=== PATIENT | male | born 1955 | race Caucasian/White ===

== ENCOUNTER 2017-10-13 18:17 | Inpatient (IN) ==
[2017-10-13] MEDS ORDERED: Iohexol 300 MG/ML 100 ML Vial (for Rad CT) IVCONTRAST ONE (18:18)
[2017-10-13] MEDS ORDERED: ceFAZolin 2 GM Premix Inj 2 GM/50 ML PIGGYBACK IV.SIG ONE (18:28)
[2017-10-13] MEDS ORDERED: Sod Chloride 0.9% Inj 1,000 ML IV.CONT SCH (18:30)
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
[2017-10-13 19:25] LABS: Baso # (Auto) 0.1 th/mm3 (0.0-0.2); Eos # (Auto) 0.1 th/mm3 (0.0-0.4); Eos % (Auto) 0.5 % (0.0-4.0); Hematocrit 46.2 % (39.0-51.0); Hemoglobin 15.4 gm/dL (13.0-17.0); Lymph # (Auto) 1.5 th/mm3 (1.0-4.8); Lymph % (Auto) 13.2 % (9.0-44.0); Mean Corpuscular HGB Conc 33.3 % (32.0-36.0); Mean Corpuscular Hemoglobin 31.6 pg (27.0-34.0); Mean Corpuscular Volume 94.8 fL (80.0-100.0); Mean Platelet Volume 10.1 fL (7.0-11.0); Mono % (Auto) 8.8 % (0.0-8.0); Neut # (Auto) 8.4 th/mm3 (1.8-7.7); Neut % (Auto) 76.5 % (16.0-70.0); Platelet Count 214 th/mm3 (150-450); Red Blood Count 4.88 mil/mm3 (4.50-5.90); Red Cell Distribution Width 13.4 % (11.6-17.2)
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
[2017-10-13 19:42] LABS: Activated Partial Thrombo Time 18.4 sec (24.3-30.1); INR 0.9 Ratio; Prothrombin Time 9.6 sec (9.8-11.6)
[2017-10-13] MEDS ORDERED: Morphine Inj 4 MG/ML Vial IV.PUSH ONE (19:50)
[2017-10-13 20:13] LABS: Alcohol 47 mg/dL (0-5); Anion Gap 15 meq/L (5-15); Blood Urea Nitrogen 19 mg/dL (7-18); Calcium 9.1 mg/dL (8.5-10.1); Carbon Dioxide 18.9 meq/L (21.0-32.0); Chloride 107 meq/L (98-107); Glomerular Filtration Rate 47 mL/min (>89); Glucose,Random 150 mg/dL (74-106); Potassium 4.2 meq/L (3.5-5.1); Sodium 141 meq/L (136-145)
[2017-10-13] MEDS ORDERED: Acetaminophen 325 MG Tablet PO PRN (22:31)
[2017-10-13] MEDS ORDERED: Bisacodyl 10 MG Supp RECTAL PRN (22:31)
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
[2017-10-14] MEDS: Sod Chloride 0.9% Inj 1,000 ML IV.CONT SCH ×2 (00:28→11:56)
[2017-10-14] MEDS: levETIRAcetam 1000mg/100mL Inj 100 ML IV.SIG SCH ×2 (02:40→13:35)
[2017-10-14] MEDS: Chlorhexidine Gluconate 2% 1 Pack (2 Cloths) TOPICAL SCH (04:00)
[2017-10-14] MEDS ORDERED: Chlorhexidine Gluconate 2% 1 Pack (2 Cloths) TOPICAL PRN (04:00)
[2017-10-14] MEDS: Morphine Inj 4 MG/ML Vial IV.PUSH PRN (06:15)
[2017-10-14 06:29] LABS: Baso % (Auto) 0.3 % (0.0-2.0); Hemoglobin 14.3 gm/dL (13.0-17.0); Lymph # (Auto) 1.2 th/mm3 (1.0-4.8); Lymph % (Auto) 12.1 % (9.0-44.0); Mean Corpuscular Hemoglobin 32.1 pg (27.0-34.0); Mean Corpuscular Volume 94.5 fL (80.0-100.0); Mean Platelet Volume 9.9 fL (7.0-11.0); Mono # (Auto) 1.1 th/mm3 (0.0-0.9); Mono % (Auto) 11.1 % (0.0-8.0); Neut # (Auto) 7.8 th/mm3 (1.8-7.7); Neut % (Auto) 76.5 % (16.0-70.0); Platelet Count 194 th/mm3 (150-450); Red Blood Count 4.44 mil/mm3 (4.50-5.90); Red Cell Distribution Width 13.2 % (11.6-17.2); White Blood Count 10.1 th/mm3 (4.0-11.0)
[2017-10-14 06:47] LABS: Activated Partial Thrombo Time 23.7 sec (24.3-30.1); Prothrombin Time 9.7 sec (9.8-11.6)
[2017-10-14 06:58] LABS: Albumin 3.3 g/dL (3.4-5.0); Anion Gap 12 meq/L (5-15); Aspartate Aminotransferase 26 U/L (15-37); Blood Urea Nitrogen 19 mg/dL (7-18); Calcium 8.9 mg/dL (8.5-10.1); Carbon Dioxide 21.6 meq/L (21.0-32.0); Chloride 108 meq/L (98-107); Glomerular Filtration Rate 84 mL/min (>89); Glucose,Random 127 mg/dL (74-106); Magnesium 2.2 mg/dL (1.5-2.5); Potassium 3.9 meq/L (3.5-5.1); Sodium 142 meq/L (136-145)
[2017-10-14 07:00] LABS: Alanine Aminotransferase 34 U/L (12-78); Phosphorus 3.5 mg/dL (2.5-4.9)
[2017-10-14 07:02] LABS: Alkaline Phosphatase 80 U/L (45-117); Total Protein 6.7 g/dL (6.4-8.2)
[2017-10-14] MEDS ORDERED: Famotidine PF Inj 20 MG/2 ML Vial IV.PUSH SCH (09:00)
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
[2017-10-14] MEDS: Lisinopril 10 MG Tablet PO SCH (09:53)
[2017-10-14] MEDS: Senna/Docusate Sodium 8.6/50 MG Tablet PO SCH ×2 (09:53→20:46)
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
[2017-10-14] MEDS ORDERED: Acetaminophen 325 MG Tablet PO PRN (10:06)
--- NOTE | 2017-10-14 10:26 | XR ---
EXAM DATE: 10/14/2017 10:11 AM EDT AGE/SEX: 62 years / Male INDICATIONS: Left shoulder pain. [facility] CLINICAL DATA: This is the patient's initial encounter. Patient reports that signs and symptoms have been present for 2 days and indicates a pain score of 10/10. MEDICAL/SURGICAL HISTORY: None. None. COMPARISON: [facility], XR CHEST PA AND LAT, 03/24/2016. . FINDINGS: Today's examination there is a small teardrop shaped piece of cortical bone just superior to the AC j oint. The findings suggest most likely an old avulsion injury. However, I would recommend correlation with point tenderness. There is good alignment at the AC joint. The rest of the bony structures invo lving the shoulder joint are grossly intact. No joint dislocation is seen. CONCLUSION: Probable old avulsion fracture involving the distal clavicle. Recommend correlation with point tender ness. Otherwise, unremarkable exam for patient's age. Electronically signed by: Alpesh Benavides MD 10/14/2017 10:25 AM EDT
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
[2017-10-14] MEDS: Folic Acid 1 MG Tablet PO SCH (11:57)
--- NOTE | 2017-10-14 17:57 | ECG ---
Date Performed: 10/13/2017 Time Performed: 22:08:57 PTAGE: 62 years EKG: Sinus rhythm WITH SINUS ARRHYTHMIA NORMAL ECG NO PREVIOUS TRACING DOCTOR: Yoanna Tipton Interpretating Date/Time 10/14/2017 17:55:13
[2017-10-15] MEDS: levETIRAcetam 1000mg/100mL Inj 100 ML IV.SIG SCH ×2 (02:02→14:45)
[2017-10-15] MEDS: Chlorhexidine Gluconate 2% 1 Pack (2 Cloths) TOPICAL SCH (04:21)
[2017-10-15 04:24] LABS: Baso % (Auto) 0.5 % (0.0-2.0); Eos # (Auto) 0.1 th/mm3 (0.0-0.4); Eos % (Auto) 1.1 % (0.0-4.0); Hemoglobin 13.9 gm/dL (13.0-17.0); Lymph # (Auto) 1.7 th/mm3 (1.0-4.8); Lymph % (Auto) 19.2 % (9.0-44.0); Mean Corpuscular Volume 94.1 fL (80.0-100.0); Mono # (Auto) 1.2 th/mm3 (0.0-0.9); Mono % (Auto) 12.7 % (0.0-8.0); Neut % (Auto) 66.5 % (16.0-70.0); Platelet Count 175 th/mm3 (150-450); Red Blood Count 4.35 mil/mm3 (4.50-5.90); Red Cell Distribution Width 13.7 % (11.6-17.2); White Blood Count 9.1 th/mm3 (4.0-11.0)
[2017-10-15 04:54] LABS: Albumin 3.1 g/dL (3.4-5.0); Anion Gap 11 meq/L (5-15); Aspartate Aminotransferase 21 U/L (15-37); Blood Urea Nitrogen 15 mg/dL (7-18); Calcium 8.4 mg/dL (8.5-10.1); Carbon Dioxide 23.1 meq/L (21.0-32.0); Chloride 106 meq/L (98-107); Glomerular Filtration Rate Greater Than 89 mL/min (>89); Glucose,Random 111 mg/dL (74-106); Magnesium 1.9 mg/dL (1.5-2.5); Potassium 3.9 meq/L (3.5-5.1); Sodium 140 meq/L (136-145)
[2017-10-15 04:59] LABS: Alanine Aminotransferase 28 U/L (12-78); Alkaline Phosphatase 68 U/L (45-117); Phosphorus 2.8 mg/dL (2.5-4.9); Total Protein 6.6 g/dL (6.4-8.2)
--- NOTE | 2017-10-15 05:34 | CT ---
EXAM DATE: 10/15/2017 5:03 AM EDT AGE/SEX: 62 years / Male INDICATIONS: Cephalgia. Follow up subarachnoid bleed. CLINICAL DATA: This is the patient's subsequent encounter. Patient reports that signs and symptoms h ave been present for 2 days and indicates a pain score of 6/10. MEDICAL/SURGICAL HISTORY: Hypertension. None. RADIATION DOSE: 56.35 CTDI (mGy) COMPARISON: [facility] [place], CT HEAD W/O CONTRAST, 10/13/2017. . TECHNIQUE: CT of the head without contrast. Using automated exposure control and adjustment of the mA and/or kV according to patient size, radiation dose was kept as low as reasonably achievable to ob tain optimal diagnostic quality images. DICOM format image data is available electronically for revi ew and comparison. FINDINGS: Previously seen right temporoparietal subarachnoid blood not clearly seen today but there is increase d size and conspicuity of a currently 3.4 cm low-attenuation area of the right temporal lobe of gina rn for focal cerebral edema/infarct. A tiny petechial hemorrhage is now seen of the left high parieta l convexity, series 2 image 25. I believe a small amount of subdural blood is in between the leaves o f the tentorium, especially on the right. No mass effect or midline shift. Blood is seen in the sphenoid air cells and would be of concern for a nondisplaced/occult skull base fracture. CONCLUSION: 1. Apparent evolving focal subcortical cerebral edema and/or infarction of the right temporal lobe. 2. No perceptible persistent subarachnoid hemorrhage but a small amount of subdural blood in between the leaves of the tentorium and a tiny left high parietal parenchymal hemorrhage are now evident. 3. Possible occult skull base fracture. Blood is seen in the sphenoid air cells. Electronically signed by: Nitesh Hernández MD 10/15/2017 5:33 AM EDT
[2017-10-15] MEDS: Lisinopril 10 MG Tablet PO SCH (08:01)
[2017-10-15] MEDS: Folic Acid 1 MG Tablet PO SCH (08:01)
[2017-10-15] MEDS: Senna/Docusate Sodium 8.6/50 MG Tablet PO SCH ×2 (08:02→20:07)
--- NOTE | 2017-10-15 11:30 | P.PNNS ---
Subjective Interval history: Patient reports doing well. Complains of some difficulty with left shoulder. Also has mild headache Physical Exam Vital signs: Vital Signs 10/14/17 12:00 10/14/17 14:00 10/14/17 16:00 Temperature 98.4 F 98.3 F Pulse Rate 84 86 80 Respiratory Rate 14 17 Blood Pressure 131/76 113/72 Pulse Oximetry 95 95 10/14/17 18:00 10/14/17 20:00 10/14/17 22:00 Temperature 98.5 F Pulse Rate 78 92 H 90 Respiratory Rate 15 Blood Pressure 112/62 Pulse Oximetry 95 95 10/15/17 00:00 10/15/17 02:00 10/15/17 04:00 Temperature 98.1 F 98.7 F Pulse Rate 86 80 84 Respiratory Rate 14 13 Blood Pressure 105/66 126/79 Pulse Oximetry 94 L 94 L 10/15/17 06:00 10/15/17 08:00 10/15/17 10:00 Temperature 98 F Pulse Rate 88 80 88 Respiratory Rate 16 Blood Pressure 128/75 Pulse Oximetry 93 L 94 L 10/15/17 10:13 Temperature Pulse Rate Respiratory Rate Blood Pressure Pulse Oximetry 92 L Intake & Output 10/14/17 10/15/17 10/15/17 18:59 06:59 18:59 Intake Total 1720 / 1720 585 / 585 Output Total 1100 / 1100 650 / 650 Balance 620 / 620 -65 / -65 Weight 129.6 kg Intake: IV 1000 / 1000 105 / 105 NS Inj 1,000 ML @ 84 mls/hr IV. 900 / 900 CONT .[id number] ALEXANDER Rx#:[id number] Keppra 1000 mg/100 mL Premix 100 / 100 105 / 105 100 ML @ 400 mls/hr IV.SIG Q12H ALEXANDER Rx#:[id number] Oral 720 / 720 480 / 480 Output: Urine 1100 / 1100 650 / 650 Other: # Bowel Movements 0 Narrative: Is alert and awake. Oriented 3. Follows commands. Difficulty with range of motion left shoulder CT scan of brain reviewed. Evolution of contusion of temporal lobe. Very small amount of subarachnoid hemorrhage Assessment and Plan - Assessment (1) Subarachnoid bleed Code(s): I60.9 - Nontraumatic subarachnoid hemorrhage, unspecified Status: Acute (2) Cerebral contusion Code(s): S06.339A - Contusion and laceration of cerebrum, unspecified, with loss of consciousness of unspecified duration, initial encounter Status: Acute - Plan We will continue neurological observation and mobilize
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
[2017-10-16] MEDS: levETIRAcetam 1000mg/100mL Inj 100 ML IV.SIG SCH (01:18)
[2017-10-16] MEDS: Chlorhexidine Gluconate 2% 1 Pack (2 Cloths) TOPICAL SCH (05:40)
[2017-10-16] MEDS: Lisinopril 10 MG Tablet PO SCH (09:16)
[2017-10-16] MEDS: Folic Acid 1 MG Tablet PO SCH (09:16)
[2017-10-16] MEDS: Senna/Docusate Sodium 8.6/50 MG Tablet PO SCH ×2 (09:16→20:00)
[2017-10-16] MEDS: Morphine Inj 4 MG/ML Vial IV.PUSH PRN (09:17)
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
--- NOTE | 2017-10-16 13:04 | P.PNNS ---
Subjective Interval history: Patient reports improvement especially in the shoulder and the leg. Physical Exam Vital signs: Vital Signs 10/15/17 14:00 10/15/17 16:00 10/15/17 18:00 Temperature 98.3 F Pulse Rate 80 78 81 Respiratory Rate 14 Blood Pressure 117/65 Pulse Oximetry 93 L 10/15/17 18:31 10/15/17 20:00 10/15/17 20:35 Temperature 97.7 F Pulse Rate 80 Respiratory Rate 20 Blood Pressure 126/79 Pulse Oximetry 94 L 94 L 93 L 10/15/17 22:00 10/16/17 00:00 10/16/17 02:00 Temperature 97.9 F Pulse Rate 76 76 76 Respiratory Rate 12 Blood Pressure 120/69 Pulse Oximetry 91 L 10/16/17 04:00 10/16/17 06:00 10/16/17 08:00 Temperature 97.7 F 97.7 F Pulse Rate 74 75 71 Respiratory Rate 14 15 Blood Pressure 128/74 129/78 Pulse Oximetry 93 L 93 L 96 10/16/17 10:00 10/16/17 12:00 Temperature 98 F Pulse Rate 71 79 Respiratory Rate 14 Blood Pressure 118/72 Pulse Oximetry 93 L Intake & Output 10/15/17 10/16/17 10/16/17 18:59 06:59 18:59 Intake Total 1060 / 1060 585 / 585 Output Total 650 / 650 500 / 500 Balance 410 / 410 85 / 85 Weight 130.6 kg Intake: IV 100 / 100 105 / 105 Keppra 1000 mg/100 mL Premix 100 / 100 105 / 105 100 ML @ 400 mls/hr IV.SIG Q12H ALEXANDER Rx#:[id number] Oral 960 / 960 480 / 480 Output: Urine 650 / 650 500 / 500 Other: # Bowel Movements 0 Narrative: Alert and awake. Follows commands well Moves all extremities well Assessment and Plan - Assessment (1) Subarachnoid bleed Code(s): I60.9 - Nontraumatic subarachnoid hemorrhage, unspecified Status: Acute (2) Cerebral contusion Code(s): S06.339A - Contusion and laceration of cerebrum, unspecified, with loss of consciousness of unspecified duration, initial encounter Status: Acute - Plan Patient is clinically doing well. May be transferred from ICU. Discussed with Dr. Maurice
[2017-10-16] MEDS: levETIRAcetam 500 MG Tablet PO SCH (20:00)
[2017-10-17] MEDS: Morphine Inj 4 MG/ML Vial IV.PUSH PRN (07:40)
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
[2017-10-17] MEDS: Chlorhexidine Gluconate 2% 1 Pack (2 Cloths) TOPICAL SCH (09:06)
[2017-10-17] MEDS: Senna/Docusate Sodium 8.6/50 MG Tablet PO SCH (09:07)
[2017-10-17] MEDS: Lisinopril 10 MG Tablet PO SCH (09:07)
[2017-10-17] MEDS: levETIRAcetam 500 MG Tablet PO SCH (09:07)
[2017-10-17] MEDS: Folic Acid 1 MG Tablet PO SCH (09:07)
== END 2017-10-17 11:21 | disposition home or self-care (01) ==
LOC: NEPE 18:17 → NEDA 22:17 → N03 23:44 → N05 10-16 16:40
PROVIDERS: ADMIT Hospitalist; ATTEND Hospitalist